=== PATIENT | male | born 1995 | race African-American/Black ===

== ENCOUNTER 2016-11-24 08:24 | Emergency (ER) | payer OTHER ==
--- NOTE | 2016-11-24 09:17 | EDDOCDS ---
Nurse's Notes [facility] Name: Gianni Fernando Age: 21 yrs Sex: Male : 1995 Arrival Date: 11/24/2016 Time: 08:24 Bed Triage 1 Private MD: Diagnosis: Viral infection, unspecified;Acute nasopharyngitis [common cold] Presentation: 11/24 08:36 Presenting complaint: Patient states: Nausea, sore throat ARMSTRONG, body aches, dizziness for ck1 a week. Adult Sepsis Screening: The patient does not have new or worsening altered mentation. Patient's respiratory rate is less than 22. Systolic blood pressure is greater than 100. Patient has a qSOFA score of 0- Negative Sepsis Screen. Suicide/Homicide risk assessment- the patient denies having any suicidal and/or homicidal ideations and does not present with any other emotional, behavioral or mental health complaints. Status: The patient is a dependent. Transition of care: patient was not received from another setting of care. 08:36 Acuity: SINGH Level 4 ck1 08:36 Method Of Arrival: Walkin/Carried/Asstd ck1 Triage Assessment: 08:39 General: Appears in no apparent distress, comfortable, Behavior is appropriate for age, ck1 cooperative. Pain: Location: generalized Pain currently is 6 out of 10 on a pain scale. HIV screening NA for this visit Offered previously. Neurological: Level of Consciousness is awake, alert, obeys commands, Oriented to person, place, time. Respiratory: Respiratory effort is unlabored, Respiratory pattern is regular, symmetrical. GI: Reports anorexia, nausea. Derm: Skin is normal. Musculoskeletal: No deficits noted. Historical: - Allergies: wool; - Home Meds: 1. none - PMHx: none; - PSHx: right shoulder surgery; right hand surgery; - Social history: Smoking status: Patient uses tobacco products, current some day smoker. No barriers to communication noted, The patient speaks fluent Estonian, Speaks appropriately for age. - Family history: Not pertinent. - : The pt / caregiver states he / she is not on anticoagulants. Home medication list is obtained from the patient. - Exposure Risk Screening:: None identified. Screenin:10 Screening information is obtained from the patient. Fall risk: No risks identified. ck1 Assistance ADL's: requires no assistance with activities of daily living. Abuse/DV Screen: The patient / caregiver reports he/she is: not in a situation that causes fear, pain or injury. Nutritional screening: No deficits noted. Advance Directives: Currently, there is no health care proxy. home support is adequate. Assessment: 09:10 General: Appears in no apparent distress, comfortable, Behavior is appropriate for age, ck1 cooperative. Pain: Location: generalized Pain currently is 6 out of 10 on a pain scale. Neurological: Level of Consciousness is awake, alert, obeys commands, Oriented to person, place, time. Respiratory: Respiratory effort is unlabored, Respiratory pattern is regular, symmetrical. Derm: Skin is intact, is healthy with good turgor, Skin is pink, warm & dry. Musculoskeletal: Circulation, motion, and sensation intact Range of motion intact in all extremities. Vital Signs: 08:37 BP 121 / 59; Pulse 99; Resp 18; Temp 100.0(O); Pulse Ox 100% on R/A; Weight 66.68 kg ck1 (R); Height 5 ft. 10 in. (177.80 cm) (R); Pain 7/10; 08:37 Body Mass Index 21.09 (66.68 kg, 177.80 cm) ck1 Vitals: 08:37 Log In Time: November 24, 2016 at 08:22. ck1 ED Course: 08:26 Patient visited by Lissa Pina Reg. lg 08:26 Patient moved to Waiting lg 08:33 Patient moved to Triage 1 ck1 08:37 Triage Initiated ck1 08:56 Patient visited by Rosey Nobles RN. ck1 08:58 [facility] is [facility]. btw 08:58 Paco Fine MD is Attending Physician. btw 08:58 Patient visited by Mandeep Zuluaga PA. btw 09:04 Prerna Jerry is Referral Physician. btw 09:10 The patient / caregiver is instructed regarding the plan of care and ED course. ck1 09:10 No IV's were initiated during this patient's visit. No procedures done that require ck1 assistance. Order Results: There are currently no results for this order. Outcome: 09:05 Discharge ordered by Provider. btw 09:10 Discharge Assessment: Patient awake, alert and oriented x 3. No cognitive and/or ck1 functional deficits noted. Patient verbalized understanding of disposition instructions. patient administered narcotics - no. The following High Risk Discharge criteria are identified: None. Discharged to home ambulatory, with significant other. Condition: stable. No special radiology studies were completed. Property :Personal belongings accompany Pt. 09:15 Discharge instructions given to patient, Instructed on discharge instructions, follow ck1 up and referral plans. medication usage, Demonstrated understanding of instructions, medications, Pt was receptive of discharge instructions/ teaching. 09:16 Patient left the ED. ck1 Signatures: Lissa Pina, Gianfranco Reg Rosey Mccormick RN RN ck1 Mandeep Zuluaga PA PA btw MTDD
--- NOTE | 2016-11-24 09:17 | EDDOCDS ---
Physician Documentation [facility] Name: Gianni Fernando Age: 21 yrs Sex: Male : 1995 Arrival Date: 11/24/2016 Time: 08:24 Bed Triage 1 Private MD: Disposition: 11/24/16 09:05 Discharged to Home/Self Care. Impression: Viral infection, unspecified, Acute nasopharyngitis [common cold]. - Condition is Stable. - Discharge Instructions: Cool Mist Vaporizers, Upper Respiratory Infection, Adult, Zckh-mx-Rurk, Viral Infections, Iubl-Re-Hvgx. - Medication Reconciliation, Local Pharmacy Hours form. - Follow up: TAVIA Graff; When: Call to arrange an appointment; Reason: Further diagnostic work-up, Recheck today's complaints, Continuance of care. - Problem is new. - Symptoms are unchanged. Historical: - Allergies: wool; - Home Meds: 1. none - PMHx: none; - PSHx: right shoulder surgery; right hand surgery; - Social history: Smoking status: Patient uses tobacco products, current some day smoker. No barriers to communication noted, The patient speaks fluent Mongolian, Speaks appropriately for age. - Family history: Not pertinent. - : The pt / caregiver states he / she is not on anticoagulants. Home medication list is obtained from the patient. - Exposure Risk Screening:: None identified. Vital Signs: 11/24 08:37 BP 121 / 59; Pulse 99; Resp 18; Temp 100.0(O); Pulse Ox 100% on R/A; Weight 66.68 kg / ck1 147 lbs (R); Height 5 ft. 10 in. (177.80 cm) (R); Pain 7/10; 08:37 Body Mass Index 21.09 (66.68 kg, 177.80 cm) ck1 MDM: 09:14 Financial registration complete. lg Signatures: Lissa Pina, Gianfranco Medel lg Rosey Nobles RN RN ck1 Mandeep Zuluaga PA PA btw MTDD
--- NOTE | 2016-11-26 10:17 | EDDOCDS ---
Physician Documentation [facility] Name: Gianni Fernando Age: 21 yrs Sex: Male : 1995 Arrival Date: 11/24/2016 Time: 08:24 Bed Triage 1 Private MD: Disposition: 11/24/16 09:05 Discharged to Home/Self Care. Impression: Viral infection, unspecified, Acute nasopharyngitis [common cold]. - Condition is Stable. - Discharge Instructions: Cool Mist Vaporizers, Upper Respiratory Infection, Adult, Yfhn-hb-Wsky, Viral Infections, Rtbt-Gv-Csxm. - Medication Reconciliation, Local Pharmacy Hours form. - Follow up: TAVIA Graff; When: Call to arrange an appointment; Reason: Further diagnostic work-up, Recheck today's complaints, Continuance of care. - Problem is new. - Symptoms are unchanged. Historical: - Allergies: wool; - Home Meds: 1. none - PMHx: none; - PSHx: right shoulder surgery; right hand surgery; - Social history: Smoking status: Patient uses tobacco products, current some day smoker. No barriers to communication noted, The patient speaks fluent Khmer, Speaks appropriately for age. - Family history: Not pertinent. - : The pt / caregiver states he / she is not on anticoagulants. Home medication list is obtained from the patient. - Exposure Risk Screening:: None identified. Vital Signs: 11/24 08:37 BP 121 / 59; Pulse 99; Resp 18; Temp 100.0(O); Pulse Ox 100% on R/A; Weight 66.68 kg / ck1 147 lbs (R); Height 5 ft. 10 in. (177.80 cm) (R); Pain 7/10; 08:37 Body Mass Index 21.09 (66.68 kg, 177.80 cm) ck1 MDM: 09:14 Financial registration complete. lg 10:24 [facility] Payment Agreement was scanned into bright box and attached to record. lg 11/25 12:51 T-Sheet-- Draft Copy was scanned into bright box and attached to record. gb Signatures: Lesia Lin, Reg Reg gb Lissa Pina, Reg Reg lg Rosey Nobles RN RN ck1 Mandeep Zuluaga PA PA btw The chart was reviewed and I authenticate all verbal orders and agree with the evaluation and treatment provided.Attachments: 11/24 10:24 [facility] [place] Payment Agreement lg 11/25 12:51 T-Sheet-- Draft Copy gb Chart Complete MTDD
--- NOTE | 2016-11-26 10:17 | EDDOCDS ---
Nurse's Notes [facility] Name: Gianni Fernando Age: 21 yrs Sex: Male : 1995 Arrival Date: 11/24/2016 Time: 08:24 Bed Triage 1 Private MD: Diagnosis: Viral infection, unspecified;Acute nasopharyngitis [common cold] Presentation: 11/24 08:36 Presenting complaint: Patient states: Nausea, sore throat ARMSTRONG, body aches, dizziness for ck1 a week. Adult Sepsis Screening: The patient does not have new or worsening altered mentation. Patient's respiratory rate is less than 22. Systolic blood pressure is greater than 100. Patient has a qSOFA score of 0- Negative Sepsis Screen. Suicide/Homicide risk assessment- the patient denies having any suicidal and/or homicidal ideations and does not present with any other emotional, behavioral or mental health complaints. Status: The patient is a dependent. Transition of care: patient was not received from another setting of care. 08:36 Acuity: SINGH Level 4 ck1 08:36 Method Of Arrival: Walkin/Carried/Asstd ck1 Triage Assessment: 08:39 General: Appears in no apparent distress, comfortable, Behavior is appropriate for age, ck1 cooperative. Pain: Location: generalized Pain currently is 6 out of 10 on a pain scale. HIV screening NA for this visit Offered previously. Neurological: Level of Consciousness is awake, alert, obeys commands, Oriented to person, place, time. Respiratory: Respiratory effort is unlabored, Respiratory pattern is regular, symmetrical. GI: Reports anorexia, nausea. Derm: Skin is normal. Musculoskeletal: No deficits noted. Historical: - Allergies: wool; - Home Meds: 1. none - PMHx: none; - PSHx: right shoulder surgery; right hand surgery; - Social history: Smoking status: Patient uses tobacco products, current some day smoker. No barriers to communication noted, The patient speaks fluent Albanian, Speaks appropriately for age. - Family history: Not pertinent. - : The pt / caregiver states he / she is not on anticoagulants. Home medication list is obtained from the patient. - Exposure Risk Screening:: None identified. Screenin:10 Screening information is obtained from the patient. Fall risk: No risks identified. ck1 Assistance ADL's: requires no assistance with activities of daily living. Abuse/DV Screen: The patient / caregiver reports he/she is: not in a situation that causes fear, pain or injury. Nutritional screening: No deficits noted. Advance Directives: Currently, there is no health care proxy. home support is adequate. Assessment: 09:10 General: Appears in no apparent distress, comfortable, Behavior is appropriate for age, ck1 cooperative. Pain: Location: generalized Pain currently is 6 out of 10 on a pain scale. Neurological: Level of Consciousness is awake, alert, obeys commands, Oriented to person, place, time. Respiratory: Respiratory effort is unlabored, Respiratory pattern is regular, symmetrical. Derm: Skin is intact, is healthy with good turgor, Skin is pink, warm & dry. Musculoskeletal: Circulation, motion, and sensation intact Range of motion intact in all extremities. Vital Signs: 08:37 BP 121 / 59; Pulse 99; Resp 18; Temp 100.0(O); Pulse Ox 100% on R/A; Weight 66.68 kg ck1 (R); Height 5 ft. 10 in. (177.80 cm) (R); Pain 7/10; 08:37 Body Mass Index 21.09 (66.68 kg, 177.80 cm) ck1 Vitals: 08:37 Log In Time: November 24, 2016 at 08:22. ck1 ED Course: 08:26 Patient visited by Lissa Pina Reg. lg 08:26 Patient moved to Waiting lg 08:33 Patient moved to Triage 1 ck1 08:37 Triage Initiated ck1 08:56 Patient visited by Rosey Nobles RN. ck1 08:58 Mandeep Zuluaga PA is PHCP. btw 08:58 Paco Fine MD is Attending Physician. btw 08:58 Patient visited by Mandeep Zuluaga PA. btw 09:04 Prerna [facility] [place] [facility] is Referral Physician. btw 09:10 The patient / caregiver is instructed regarding the plan of care and ED course. ck1 09:10 No IV's were initiated during this patient's visit. No procedures done that require ck1 assistance. 10:23 Patient name changed from Gianni\S\\S\Abdullahi\S\ to Gianni\S\ \S\Abdullahi. EDMS 10:24 [facility] Payment Agreement was scanned into Moneyspyder and attached to record. lg 11/25 12:51 T-Sheet-- Draft Copy was scanned into Moneyspyder and attached to record. gb Order Results: There are currently no results for this order. Outcome: 11/24 09:05 Discharge ordered by Provider. btw 09:10 Discharge Assessment: Patient awake, alert and oriented x 3. No cognitive and/or ck1 functional deficits noted. Patient verbalized understanding of disposition instructions. patient administered narcotics - no. The following High Risk Discharge criteria are identified: None. Discharged to home ambulatory, with significant other. Condition: stable. No special radiology studies were completed. Property :Personal belongings accompany Pt. 09:15 Discharge instructions given to patient, Instructed on discharge instructions, follow ck1 up and referral plans. medication usage, Demonstrated understanding of instructions, medications, Pt was receptive of discharge instructions/ teaching. 09:16 Patient left the ED. ck1 Signatures: Dispatcher [employer] EDMS Lesia Lin, Reg Reg gb Lissa Pina, Reg Reg lg Rosey Nobles RN RN ck1 Mandeep Zuluaga PA PA btw Chart Complete DONALD
--- NOTE | 2016-11-26 10:17 | EDDOCDS ---
Physician Documentation [facility] Name: Gianni Fernando Age: 21 yrs Sex: Male : 1995 Arrival Date: 11/24/2016 Time: 08:24 Bed Triage 1 Private MD: Disposition: 11/24/16 09:05 Discharged to Home/Self Care. Impression: Viral infection, unspecified, Acute nasopharyngitis [common cold]. - Condition is Stable. - Discharge Instructions: Cool Mist Vaporizers, Upper Respiratory Infection, Adult, Zbaf-wr-Nrvt, Viral Infections, Etaq-Rk-Jnon. - Medication Reconciliation, Local Pharmacy Hours form. - Follow up: TAVIA Graff; When: Call to arrange an appointment; Reason: Further diagnostic work-up, Recheck today's complaints, Continuance of care. - Problem is new. - Symptoms are unchanged. Historical: - Allergies: wool; - Home Meds: 1. none - PMHx: none; - PSHx: right shoulder surgery; right hand surgery; - Social history: Smoking status: Patient uses tobacco products, current some day smoker. No barriers to communication noted, The patient speaks fluent Kyrgyz, Speaks appropriately for age. - Family history: Not pertinent. - : The pt / caregiver states he / she is not on anticoagulants. Home medication list is obtained from the patient. - Exposure Risk Screening:: None identified. Vital Signs: 11/24 08:37 BP 121 / 59; Pulse 99; Resp 18; Temp 100.0(O); Pulse Ox 100% on R/A; Weight 66.68 kg / ck1 147 lbs (R); Height 5 ft. 10 in. (177.80 cm) (R); Pain 7/10; 08:37 Body Mass Index 21.09 (66.68 kg, 177.80 cm) ck1 MDM: 09:14 Financial registration complete. lg 10:24 [facility] Payment Agreement was scanned into AMT and attached to record. lg 11/25 12:51 T-Sheet-- Draft Copy was scanned into AMT and attached to record. gb Signatures: Lesia Lin, Reg Reg gb Lissa Pina, Reg Reg lg Rosey Nobles RN RN ck1 Mandeep Zuluaga PA PA btw The chart was reviewed and I authenticate all verbal orders and agree with the evaluation and treatment provided.Attachments: 11/24 10:24 [facility] [place] Payment Agreement lg 11/25 12:51 T-Sheet-- Draft Copy gb Chart Complete MTDD
== END 2016-11-24 09:16 | disposition home or self-care (01) ==
LOC: M ED 08:24
DX: J06.9 Acute upper respiratory infection, unspecified (principal); B34.9 Viral infection, unspecified; F17.200 Nicotine dependence, unspecified, uncomplicated; Z91.048 Other nonmedicinal substance allergy status

== ENCOUNTER 2017-02-21 12:30 | Emergency (ER) | payer OTHER ==
[~2017-02-21] VITALS: Ht 177.8 cm; Wt 68.0 kg
[2017-02-21] MEDS ORDERED: OXYC1TAB23 PO (12:43)
[2017-02-21] MEDS ORDERED: NS 1,000 ML IV ONE (13:00)
[2017-02-21] MEDS ORDERED: KETOROLAC 30 MG/ML VIAL (J1885) IV ONE (13:00)
[2017-02-21] MEDS ORDERED: ONDANSETRON 4MG/2ML VIAL (J2405) IV ONE (13:00)
--- NOTE | 2017-02-21 14:08 | REP ---
ABDOMINAL SERIES: Supine and erect views of the abdomen demonstrate no free air and no compelling evidence for obstruction. No dilated small bowel loops are seen. No abnormal calcifications are seen. The visualized osseous structures are unremarkable. An accompanying view of the chest demonstrates no acute infiltrate. The heart is normal in size. IMPRESSION: Negative abdominal series. Signed by Kofi Watson MD 02/21/2017 05:44 P
[2017-02-21 14:10] LABS: BASO % 0.3 % (0.0-1.0); EOS % 0.7 % (0.0-3.0); LARGE UNSTAINED CELL # 0.1 K/mm3 (0.0-0.4); LARGE UNSTAINED CELL % 1.1 % (0.0-4.0); LYMPH # 0.9 K/mm3 (1.5-6.5); LYMPH % 11.6 % (24.0-44.0); MEAN CORPUSCULAR HEMOGLOBIN 30.6 pg (27.0-33.0); MEAN CORPUSCULAR HGB CONC 32.3 g/dl (32.0-36.5); MEAN CORPUSCULAR VOLUME 94.8 fl (80.0-96.0); MONO # 0.2 K/mm3 (0.0-0.8); MONO % 3.4 % (0.0-5.0); NEUTROPHILS # 5.8 K/mm3 (1.8-7.7); NEUTROPHILS % 82.8 % (36.0-66.0); PLATELET COUNT, AUTOMATED 221 k/mm3 (150-450); RED CELL DISTRIBUTION WIDTH 12.7 % (11.5-14.5)
[2017-02-21 15:40] LABS: ALBUMIN 4.3 GM/DL (3.2-5.2); ALKALINE PHOSPHATASE 79 U/L (45-117); ALT/SGPT 16 U/L (12-78); AMYLASE 62 U/L (25-115); ANION GAP 5 MEQ/L (8-16); AST/SGOT 16 U/L (15-37); BILIRUBIN,DIRECT 0.1 MG/DL (0.0-0.2); BILIRUBIN,TOTAL 0.4 MG/DL (0.2-1.0); BLOOD UREA NITROGEN 10 MG/DL (7-18); CALCIUM LEVEL 8.8 MG/DL (8.5-10.1); CARBON DIOXIDE LEVEL 30 MEQ/L (21-32); CHLORIDE LEVEL 105 MEQ/L (98-107); CREATININE FOR GFR 0.96 MG/DL (0.70-1.30); GLOMERULAR FILTRATION RATE > 60.0 (>60); GLUCOSE, FASTING 87 MG/DL (70-105); POTASSIUM SERUM 4.3 MEQ/L (3.5-5.1); SODIUM LEVEL 140 MEQ/L (136-145); TOTAL PROTEIN 7.6 GM/DL (6.4-8.2)
[2017-02-21 15:46] VITALS: BP 121/58
[2017-02-21 16:15] LABS: METHADONE URINE NEGATIVE (NEGATIVE)
[2017-02-21] MEDS ORDERED: ZOFR4TAB3 PO (16:19)
== END 2017-02-21 16:34 | disposition home or self-care (01) ==
LOC: M ED 13:32
DX: R11.2 Nausea with vomiting, unspecified (principal); F17.200 Nicotine dependence, unspecified, uncomplicated; Z91.048 Other nonmedicinal substance allergy status
CPT/HCPCS: 36415; 74022; 80048; 80076; 80306; 81001; 82150; 83690; 85025; 96374; 96375; 99283; G0480; J1885; J2405

== ENCOUNTER → 2017-05-23 | Outpatient (CLI) | payer OTHER ==
[~2017-05-23] MED LIST: CONRAY-43 43% 50ML VIAL (Q9960) As Ordered ONE; IBUP-1022 PO; OXYC1TAB23 PO; ZOFR4TAB3 PO
--- NOTE | 2017-05-23 19:50 | REP ---
MRI right shoulder arthrogram 05/23/2017: Clinical history: Right shoulder pain for the past 6 months after two previous shoulder surgeries at [facility]. My operative notes for 01/15/2016 for revision. Anterior labral repair, capsular shift and subacromial bursectomy and operative notes from the 04/21/2015 for anterior labrum repair Remplissage and subacromial decompression. Comparison x-ray: 12/08/2015, MR arthrogram 12/30/2015 at [facility]. Technique. Precontrast coronal T1 with and fat suppressed T2 coronal axial images and after gadolinium arthrogram injection, the patient had axial PD, T1 fat suppressed, coronal T1 and T2 fat suppressed, sagittal fat suppressed T2 and an AVER fat suppressed T1 sequence provided. Effusion on the precontrast. Scapularis tendon is slightly thickened but no tear of the tendon or atrophy of the muscle. Infraspinatus and teres minor tendons and muscles are grossly intact. Some undermining of the superior labrum. The coronal images and the biceps labral complex shows some mild thinning more anteriorly. Tendon is not displaced from the bicipital groove contrast arthrogram. I do not see fluid extending into the subcoracoid bursa nor is there fluid extending into the subacromial or subdeltoid bursa. There is supraspinatus tendinopathy tendinosis without a tear or full-thickness or retraction of that tendon. Acromial decompression noted with only minimal bursal surface fraying. Compression of the musculotendinous junction and acromion but a slight clavicular spur indents the musculotendinous junction. Coracoclavicular and coracohumeral ligaments are intact. Appears anterior labrum inferiorly and Hill-Sachs deformity posterior, over the posterior aspect of the humeral head subjacent to the tendon. Impression: 1. Slight undermining of the superior labrum may reflect a small labral tear of the scapularis. Does not show evidence of a tear. 2. [place] in the posterior humeral head subjacent to the infraspinatus tendon. There is tendinosis of the supraspinatus but no full-thickness tear, retraction of the tendon. Tiny spur inferior clavicle indents the musculotendinous junction. 3. Coracoclavicular coracohumeral ligaments intact. 4. Inferior anterior labrum shows repair with a labral anchor into the glenoid. No other significant or acute finding. Signed by Brown Lane MD 05/23/2017 09:30 P
--- NOTE | 2017-05-23 21:16 | REP ---
Procedure: Right shoulder arthrogram The procedure was performed under the direct supervision of Dr. Lane. History: Right shoulder pain The benefits and risks including but not limited to pain, infection, bleeding and anaphylaxis were explained to the patient and informed consent was obtained. Technique: The right glenohumeral joint space was localized using fluoroscopic guidance. The skin was prepped and draped in a sterile fashion. 1% lidocaine was used as a local anesthetic. Using fluoroscopic guidance a 22 gauge spinal needle was inserted and advanced into the joint. 0.5 ml of Conray 43 was injected to verify placement. 11 ml of a solution containing 20 ml of sterile saline and 0.15 ml of ProHance was injected into the joint. The needle was removed and the patient was taken to MRI for postprocedural imaging. The the patient tolerated the procedure well and there were no immediate complications. 3 sec of fluoro time was utilized for this procedure. Reviewed by CHELY Gibbons 05/23/2017 09:[address] MD 05/23/2017 09:08 P
== END ==
LOC: M RADPRO 06:54
PROVIDERS: ATTEND Physician Assistant Medical
DX: M65.811 Other synovitis and tenosynovitis, right shoulder (principal); Z91.048 Other nonmedicinal substance allergy status
CPT/HCPCS: 23350; 73223; 77002; A9576; Q9960

== ENCOUNTER 2017-06-15 15:22 | Emergency (ER) | payer OTHER ==
[~2017-06-15] VITALS: Ht 177.8 cm; Wt 65.9 kg
[~2017-06-15 15:22] MED LIST changes: -CONRAY-43 43% 50ML VIAL (Q9960) As Ordered ONE; -IBUP-1022 PO
[2017-06-15 15:23] VITALS: BP 135/58
[2017-06-15] MEDS ORDERED: IBUP-1022 PO (17:30)
--- NOTE | 2017-06-16 06:40 | REP ---
REASON: Pain after trauma. COMPARISON: Hand examination of 07/27/2016. FINDINGS: No acute fracture or destructive osseous lesion. Signed by Alex Recinos DO 06/16/2017 02:39 P
== END 2017-06-15 17:48 | disposition home or self-care (01) ==
LOC: M ED 15:22
DX: S63.634A Sprain of interphalangeal joint of right ring finger, initial encounter (principal); W23.0XXA Caught, crushed, jammed, or pinched between moving objects, initial encounter; Y92.099 Unspecified place in other non-institutional residence as the place of occurrence of the external cause; Y93.9 Activity, unspecified; Y99.9 Unspecified external cause status; F17.200 Nicotine dependence, unspecified, uncomplicated; Z91.89 Other specified personal risk factors, not elsewhere classified

== ENCOUNTER 2017-09-17 14:28 | Emergency (ER) | payer OTHER ==
[~2017-09-17] VITALS: Ht 177.8 cm; Wt 68.0 kg
[2017-09-17 14:28] VITALS: BP 148/66
[~2017-09-17 14:28] MED LIST changes: +IBUP-1022 PO
== END 2017-09-17 15:31 | disposition left against medical advice (07) ==
LOC: M ED 14:28
DX: S99.919A Unspecified injury of unspecified ankle, initial encounter (principal); X58.XXXA Exposure to other specified factors, initial encounter; Y92.9 Unspecified place or not applicable; Y93.9 Activity, unspecified; Y99.9 Unspecified external cause status; Z53.21 Procedure and treatment not carried out due to patient leaving prior to being seen by health care provider

== ENCOUNTER 2017-11-01 07:23 | Emergency (ER) | payer OTHER ==
[2017-11-01] MEDS: NORCO, ANEXSIA 5/325MG TABLET (HYDROcodone/ACETAMINOPHEN) PO (07:52)
== END 2017-11-01 08:42 | disposition home or self-care (01) ==
LOC: M ED 07:23
DX: S83.92XA Sprain of unspecified site of left knee, initial encounter (principal); W00.0XXA Fall on same level due to ice and snow, initial encounter; Y92.89 Other specified places as the place of occurrence of the external cause; Y93.01 Activity, walking, marching and hiking; Y99.8 Other external cause status; J45.909 Unspecified asthma, uncomplicated; Z91.048 Other nonmedicinal substance allergy status; Z87.891 Personal history of nicotine dependence
CPT/HCPCS: 73564